=== PATIENT | male | born 1975 | race Caucasian/White ===

== ENCOUNTER 2017-02-03 17:31 | Emergency (ER) | payer MEDICAID ==
[~2017-02-03] VITALS: Ht 165.1 cm; Wt 100.0 kg
[2017-02-03 17:42] VITALS: Ht 165.1 cm; Wt 100.0 kg
[2017-02-03] MEDS ORDERED: MECLIZINE 12.5 MG TAB PO ONE (19:30)
[2017-02-03] MEDS ORDERED: NICARDipine HCL 30 MG CAPSULE PO ONE (19:30)
[2017-02-03] MEDS ORDERED: IBUPROFEN 800 MG TAB PO ONE (19:30)
[2017-02-03 20:00] VITALS: BP 150/90; PULSE 84; RESP 18
[2017-02-03] MEDS ORDERED: MECL12.574 PO (20:12)
[2017-02-03] MEDS ORDERED: HYD25 PO (20:12)
--- NOTE | 2017-02-03 20:13 | ERD ---
ER Documentation Chief Complaint Date/Time DATE: 02/03/17 TIME: 20:13 Chief Complaint denies cp or sob HPI Patient is a 41-year-old male with no medical problems who presents with dizziness. He said that he was driving this afternoon and felt like the room was spinning. He then was complaining of chest pain and headache. It lasted minutes and got better. It has been coming and going. Upon review of old medical records this is the patient's first visit to the emergency department. The patient does not currently have a primary doctor. ROS All systems reviewed and are negative except as per history of present illness. Medications Home Meds Active Scripts Meclizine Hcl* (Antivert*) 12.5 Mg Tab, 12.5 MG PO Q6H Y for DIZZINESS, #20 TAB Prov:JIM CHEATHAM MD 02/03/17 Hydrochlorothiazide* (Hydrochlorothiazide*) 25 Mg Tab, 25 MG PO DAILY, #30 TAB Prov:JIM CHEATHAM MD 02/03/17 Allergies Allergies: Coded Allergies: No Known Allergy (Unverified , 02/03/17) PMhx/Soc History of Surgery: No Anesthesia Reaction: No Hx Neurological Disorder: No Hx Respiratory Disorders: No Hx Cardiac Disorders: No Hx Psychiatric Problems: No Hx Miscellaneous Medical Probl: No Hx Alcohol Use: Yes (OCCASSIONALLY) Hx Substance Use: No Hx Tobacco Use: No Smoking Status: Never smoker FmHx Family History: No diabetes Physical Exam Vitals Vital Signs Date Time Temp Pulse Resp B/P Pulse Ox O2 Delivery O2 Flow Rate FiO2 02/03/17 20:00 84 18 150/90 99 Room Air 02/03/17 17:42 98.5 80 20 171/104 99 Physical Exam Const: No acute distress Head: Atraumatic Eyes: Normal Conjunctiva ENT: Normal External Ears, Nose and Mouth. Neck: Full range of motion..~ No meningismus. Resp: Clear to auscultation bilaterally Cardio: Regular rate and rhythm, no murmurs Abd: Soft, non tender, non distended. Normal bowel sounds Skin: No petechiae or rashes Back: No midline or flank tenderness Ext: No cyanosis, or edema Neur: Awake and alert, no slurred speech, cranial nerves II through XII intact, strength is 5 out of 5 in all 4 extremities Psych: Normal Mood and Affect Results 24 hrs Laboratory Tests Test 02/03/17 19:56 Bedside Glucose 125mg/dL Current Medications Medications (Trade) Dose Ordered Sig/Kathrin Route PRN Reason Start Time Stop Time Status Last Admin Dose Admin Ibuprofen (Motrin) 800 mg ONCE ONCE PO 02/03/17 19:30 02/03/17 19:31 DC 02/03/17 19:25 Meclizine HCl (Antivert) 25 mg ONCE ONCE PO 02/03/17 19:30 02/03/17 19:31 DC 02/03/17 19:24 Nicardipine HCl (Cardene) 30 mg ONCE ONCE PO 02/03/17 19:30 02/03/17 19:31 DC 02/03/17 19:25 Procedures/MDM EKG read by me: Rate/Rhythm: Regular rate and rhythm at a rate of 78 Intervals: Normal Impression: No evidence of ischemia or arrhythmia Accu-Chek normal. Patient is a 41-year-old male presents with dizziness. EKG and Accu-Chek are normal. The patient has a normal neurologic exam. At this point I doubt stroke. I doubt intracranial hemorrhage or mass. I doubt acute coronary syndrome. I doubt pneumonia, pneumothorax, pulmonary embolism, or aortic dissection. I believe outpatient management is appropriate. The patient will be given a prescription for meclizine and hydrochlorothiazide. He was given Cardene in the emergency department because his blood pressure was elevated at 170/100. The patient should follow-up with the local clinics within 24-48 hours for reevaluation as he does not currently have a primary doctor. Departure Diagnosis: Primary Impression: Hypertension Hypertension type: essential hypertension Qualified Code: I10 - Essential hypertension Additional Impression: Dizziness Condition: Fair Patient Instructions: High Blood Pressure (Hypertension), Dizziness, Unk Cause [facility] Usted se bolanos hecho un examen mdico de control que le indica que no est en king condicin que requiera tratamiento urgente en el Departamento de Emergencia. Un estudio ms profundo y el tratamiento de alegria condicin pueden esperar sin ningn riesgo hasta que usted sea atendida/o en el consultorio de alegria mdico o king cl kwan. Es responsabilidad suya arreglar king donald para el seguimiento del venu. MANEJO DE CONDICIONES NO URGENTES EN EL FUTURO 1) Si usted tiene un mdico de atencin primaria: Usted debera llamar a alegria mdico de atencin primaria antes de venir al departamento de emergencia. Despus de las horas de consultorio, alegria doctor o alegria asociado/a est disponible por telfono. El mdico o enfermero de beckie en el servicio telefnico puede asesorarle por faisal medio para atender el problema, o venu contrario se puede programar king donald. 2) Si usted no tiene un mdico de atencin primaria: Llame al mdico o clnica de referencia que aparece abajo rosalinda las horas de consultorio para hacer king donald para que le vean. CLINICAS: [facility] [phone] [facility] [phone] [facility] [phone] [facility] [facility] [phone] [facility] [place] [phone] [facility]. [phone] [address] Additional Instructions: Llame al doctor MAANA y jones king DONALD PARA DENTRO DE 1-2 RODRIGUEZ.Dgale a la secretaria que nosotros le instruimos hacer esta donald.Avise o llame si alegria condicin se empeora antes de la donald. Regresa aqui si peor o no mejor. JIM CHEATHAM MD Feb 03, 2017 20:13
== END 2017-02-03 20:23 | disposition home or self-care (01) ==
LOC: E/R 17:31
DX: I10 Essential (primary) hypertension (principal); R40.2142 Coma scale, eyes open, spontaneous, at arrival to emergency department; R40.2252 Coma scale, best verbal response, oriented, at arrival to emergency department; R40.2362 Coma scale, best motor response, obeys commands, at arrival to emergency department
CPT/HCPCS: 82962; 93005; Z7610